=== PATIENT | female | born 1935 | race Caucasian/White ===

== ENCOUNTER → 2019-02-27 | Outpatient (CLI) | payer MEDICARE ==
[~2019-02-27] MED LIST: ASPI325 PO; ASPI81EC PO; Augmentin 875-1 EACH PO; Biotin1 MG; CALCAVITD PO; CARV25 PO; CHOL10002; CITA20 PO; Central Vite F1 EACH PO; DIAZ2 PO; DONE5 PO; ESCI10 PO; Enablex7.5 MG PO; HYDACE5 PO; LORA1 PO; LOSARTAN POTAS100 MG PO; LOSARTAN-HCTZ1 EAC1 PO; METO50 PO; Norco 7.5-3251 EACH PO; POTCHL20ER PO; QUET25 PO; RALO60 PO; TRIHYD253A PO; VALS80 PO; XARELTO15 MG PO; Zofran Odt4 MG SL
== END | disposition home or self-care (01) ==
LOC: LAB SHORT 10:39 → PLD 10:39
DX: C44.629 Squamous cell carcinoma of skin of left upper limb, including shoulder (principal)
CPT/HCPCS: 88305

== ENCOUNTER → 2019-04-10 | Outpatient (CLI) | payer MEDICARE | END | disposition home or self-care (01) | LOC: LAB SHORT 10:32 → PLD 10:32 | DX: C44.311 Basal cell carcinoma of skin of nose (principal) | CPT/HCPCS: 88305 ==

== ENCOUNTER 2020-05-04 21:19 | Emergency (ER) | payer MEDICARE ==
[~2020-05-04] VITALS: Ht 160 cm; Wt 77.1 kg
[2020-05-04 23:30] LABS: Source, Urine Clean Catch
[2020-05-04 23:34] LABS: Appearance, Urine Clear (Clear); Bilirubin, Urine Neg (Neg); Blood, Urine 1+ (Neg); Color, Urine Yellow (P-Yellow); Glucose Qualitative, Urine Neg (Neg); Ketones, Urine Neg (Neg); Leukocyte Esterase, Urine 3+ (Neg); Nitrite, Urine Neg (Neg); Protein, Urine 1+ (Neg); Urobilinogen, Urine NORM (Normal)
[2020-05-04 23:41] LABS: White Blood Cells, Urine 25-50 /hpf (0-5)
[2020-05-04 23:42] LABS: Bacteria Many /hpf; Red Blood Cells, Urine 0-2 /hpf (0-2); Squamous Epithelial Cells Mod /hpf (Few)
== END 2020-05-05 01:30 | disposition home or self-care (01) ==
LOC: ER 21:19
PROVIDERS: Student in an Organized Health Care Education/Training Program
DX: R10.9 Unspecified abdominal pain (principal); I10 Essential (primary) hypertension; I48.91 Unspecified atrial fibrillation; F32.9 Major depressive disorder, single episode, unspecified; G20 Parkinson's disease; F02.80 Dementia in other diseases classified elsewhere, unspecified severity, without behavioral disturbance, psychotic disturbance, mood disturbance, and anxiety; Z88.2 Allergy status to sulfonamides; Z88.1 Allergy status to other antibiotic agents; Z79.01 Long term (current) use of anticoagulants; Z79.899 Other long term (current) drug therapy
CPT/HCPCS: 71045; 81001; 87077; 87086; 87186; 96372; 99284-25; J1885

== ENCOUNTER 2023-07-10 12:12 | Emergency (ER) | payer MEDICARE ==
[~2023-07-10] VITALS: Ht 160 cm; Wt 74.4 kg
[2023-07-10] MEDS ORDERED: Ibuprofen 600 MG Tab PO ONE (12:25)
[2023-07-10] MEDS ORDERED: LIDO700A20 TOP (12:44)
[2023-07-10] MEDS ORDERED: HYDR1TAB94 PO (12:44)
[2023-07-10] MEDS ORDERED: HYDROcodone 5-APAP 325 TAB PO ONE (12:45)
[2023-07-10] MEDS ORDERED: Lidocaine 4% 1 Patch TOP ONE (12:45)
[2023-07-10 13:05] VITALS: BP 164/67
== END 2023-07-10 13:13 | disposition home or self-care (01) ==
LOC: ER 12:12
DX: S22.41XA Multiple fractures of ribs, right side, initial encounter for closed fracture (principal); W18.39XA Other fall on same level, initial encounter; I10 Essential (primary) hypertension; I48.91 Unspecified atrial fibrillation; G20.A1 Parkinson's disease without dyskinesia, without mention of fluctuations; F02.80 Dementia in other diseases classified elsewhere, unspecified severity, without behavioral disturbance, psychotic disturbance, mood disturbance, and anxiety; F32.A Depression, unspecified; Z88.2 Allergy status to sulfonamides; Z88.1 Allergy status to other antibiotic agents; Z79.899 Other long term (current) drug therapy
CPT/HCPCS: 71101; 99283-25; A9270

== ENCOUNTER → 2024-05-28 | Outpatient (CLI) | payer MEDICARE ==
[~2024-05-28] MED LIST changes: +HYDR1TAB94 PO; +LIDO700A20 TOP
== END ==
LOC: LAB 16:05 → LAB SHORT 16:05
DX: N30.00 Acute cystitis without hematuria (principal)
CPT/HCPCS: 87077; 87086; 87186